=== PATIENT | female | born 1960 | race Caucasian/White ===

== ENCOUNTER 2021-05-09 20:34 | Observation (INO) ==
[2021-05-10] MEDS ORDERED: Naloxone 0.4 MG/ML INJ IVP PRN (03:04)
[2021-05-10] MEDS: 0.9 % Sodium Chloride 1,000 ML IVC SCH ×3 (03:58→23:29)
[2021-05-10] MEDS: Acetaminophen IV 1,000 MG/100 ML BAG IVPB SCH ×4 (05:05→23:29)
[2021-05-10] MEDS: Famotidine 20 MG/2 ML VIAL IVP SCH ×2 (05:05→17:52)
[2021-05-10 05:18] LABS: Hemoglobin 10.2 g/dL (11.5-15.4); Mean Corpuscular HGB Conc 30.9 g/dL (31.6-35.5); Mean Corpuscular Hemoglobin 26.8 pg (28.0-33.3); Mean Corpuscular Volume 86.8 fL (83.0-100.0); Mean Platelet Volume 9.3 fL (9.4-12.4); Platelet Count 301 K/mcL (140-400); Red Cell Distribution Width 14.7 % (11.5-14.5); White Blood Count 7.2 K/mcL (4.3-11.1)
[2021-05-10 05:25] LABS: INR 1.1
[2021-05-10 05:27] LABS: Activated Partial Thrombo Time 33.1 Seconds (26.0-36.0)
[2021-05-10 05:41] LABS: BUN/Creatinine Ratio 11 (6-26); Blood Urea Nitrogen 12 mg/dL (8-23); Calcium 8.3 mg/dL (8.6-10.3); Carbon Dioxide 25 mEq/L (23-29); Chloride 109 mEq/L (98-107); Chol/HDL Ratio 2.9 (0-4.9); Cholesterol 106 mg/dL (< 200); Glucose 101 mg/dL (70-105); HDL Cholesterol 37 mg/dL (40-59); Iron 43 mcg/dL (50-170); LDL Cholesterol,Calculated 52 mg/dL (< 100); Magnesium 1.9 mg/dL (1.6-2.6); Osmolality,Calculated 290 (280-300); Potassium 3.5 mEq/L (3.5-5.1); Sodium 140 mEq/L (136-145); Triglycerides 87 mg/dL (< 150); Troponin I < 0.03 ng/mL (< 0.04); eGFR For African Americans > 60 (> 60); eGFR For Non-African Americans 52 (> 60)
[2021-05-10 05:48] LABS: Estimated Average Glucose 137 mg/dl; Hemoglobin A1C 6.4 %
[2021-05-10 05:54] LABS: Ferritin 15 ng/mL (10-120)
[2021-05-10 07:07] LABS: Folate > 22.3 ng/mL (3.0-16.0); Vitamin B12 160 pg/mL (250-1100)
[2021-05-10 10:54] LABS: Vitamin D 25 Hydroxy 20 ng/mL (30-80)
[2021-05-10] MEDS: *HR* Promethazine 25 MG/ML VIAL IM PRN (11:17)
[2021-05-10] MEDS ORDERED: Cyanocobalamin (B-12) 1,000 MCG/ML VIAL IM ONE (12:28)
[2021-05-11] MEDS: Famotidine 20 MG/2 ML VIAL IVP SCH ×2 (05:02→18:43)
[2021-05-11] MEDS: Acetaminophen IV 1,000 MG/100 ML BAG IVPB SCH ×3 (05:02→23:57)
[2021-05-11 05:55] LABS: Hematocrit 31.3 % (35.3-44.9); Hemoglobin 9.6 g/dL (11.5-15.4); Mean Corpuscular HGB Conc 30.7 g/dL (31.6-35.5); Mean Corpuscular Volume 88.2 fL (83.0-100.0); Mean Platelet Volume 9.7 fL (9.4-12.4); Platelet Count 286 K/mcL (140-400); Red Blood Count 3.55 M/mcL (3.82-4.97); Red Cell Distribution Width 14.6 % (11.5-14.5); White Blood Count 10.2 K/mcL (4.3-11.1)
[2021-05-11 06:15] LABS: BUN/Creatinine Ratio 14 (6-26); Blood Urea Nitrogen 13 mg/dL (8-23); Carbon Dioxide 24 mEq/L (23-29); Chloride 113 mEq/L (98-107); Glucose 97 mg/dL (70-105); Osmolality,Calculated 296 (280-300); Potassium 3.2 mEq/L (3.5-5.1); Sodium 143 mEq/L (136-145); eGFR For African Americans > 60 (> 60); eGFR For Non-African Americans > 60 (> 60)
[2021-05-11] MEDS ORDERED: Potassium Chloride Elixir 20 MEQ/15 ML UDC PO ONE (07:52)
[2021-05-11] MEDS: 0.9 % Sodium Chloride 1,000 ML IVC SCH ×3 (08:35→23:58)
[2021-05-12] MEDS: 0.9 % Sodium Chloride 1,000 ML IVC SCH ×2 (03:51→23:49)
[2021-05-12] MEDS: Acetaminophen IV 1,000 MG/100 ML BAG IVPB SCH ×4 (05:07→23:48)
[2021-05-12] MEDS: Famotidine 20 MG/2 ML VIAL IVP SCH ×2 (05:07→18:37)
[2021-05-12 05:48] LABS: Hemoglobin 10.1 g/dL (11.5-15.4); Mean Corpuscular HGB Conc 32.6 g/dL (31.6-35.5); Mean Corpuscular Hemoglobin 28.3 pg (28.0-33.3); Mean Corpuscular Volume 86.8 fL (83.0-100.0); Mean Platelet Volume 9.5 fL (9.4-12.4); Platelet Count 285 K/mcL (140-400); Red Blood Count 3.57 M/mcL (3.82-4.97); Red Cell Distribution Width 14.8 % (11.5-14.5); White Blood Count 9.6 K/mcL (4.3-11.1)
[2021-05-12 06:10] LABS: BUN/Creatinine Ratio 15 (6-26); Blood Urea Nitrogen 15 mg/dL (8-23); Calcium 8.6 mg/dL (8.6-10.3); Carbon Dioxide 25 mEq/L (23-29); Chloride 108 mEq/L (98-107); Glucose 88 mg/dL (70-105); Osmolality,Calculated 288 (280-300); Potassium 3.8 mEq/L (3.5-5.1); Sodium 139 mEq/L (136-145); eGFR For African Americans > 60 (> 60); eGFR For Non-African Americans 57 (> 60)
[2021-05-12 09:52] LABS: Bilirubin,Urine Negative (Negative); Blood,Urine Negative (Negative); Clarity,Urine Clear (Clear); Color,Urine Colorless (Yellow); Glucose,Urine (UA) Normal (Normal); Ketones,Urine Negative (Negative); Leukocyte Esterase,Urine Negative (Negative); Nitrite,Urine Negative (Negative); PH,Urine 6.5 pH Units (5.0-8.0); Protein,Urine Negative (Neg-Trace); Specific Gravity,Urine 1.009 (1.010-1.025); Urobilinogen,Urine Normal (Normal)
[2021-05-12] MEDS ORDERED: Cyanocobalamin (B-12) 1,000 MCG/ML VIAL IM ONE (12:29)
[2021-05-12] MEDS: Thiamine (B-1) 100 MG in 0.9 % Sodium Chloride 50 ML IVPB SCH ×2 (16:46→22:49)
[2021-05-12] MEDS: *HR* Promethazine 25 MG/ML VIAL IM PRN (22:50)
[2021-05-12 23:27] VITALS: PULSE 59; TEMP 97.5
[2021-05-13] MEDS: 0.9 % Sodium Chloride 1,000 ML IVC SCH ×2 (05:16→05:17)
[2021-05-13] MEDS: Famotidine 20 MG/2 ML VIAL IVP SCH (05:17)
[2021-05-13] MEDS: Acetaminophen IV 1,000 MG/100 ML BAG IVPB SCH (05:18)
[2021-05-13] MEDS: Thiamine (B-1) 100 MG in 0.9 % Sodium Chloride 50 ML IVPB SCH (08:52)
[2021-05-13 10:19] LABS: % Iron Saturation 16 % (15-50); Transferrin 188 mg/dL (200-400)
[2021-05-13 10:45] VITALS: BP 125/64; O2SAT 92
[2021-05-13] MEDS ORDERED: *HR* Heparin 5,000 UNIT/ML VIAL SQ SCH (18:00)
== END 2021-05-13 13:39 | disposition home health service (06) ==
LOC: 3ANU → SUATTDRO 05-10 01:28
PROVIDERS: ADMIT Student in an Organized Health Care Education/Training Program; ATTEND Family Medicine